=== PATIENT | female | born 1945 | race African-American/Black ===

== ENCOUNTER 2016-11-19 17:09 | Emergency (ER) | payer MEDICARE, MEDICAID ==
[~2016-11-19] VITALS: Ht 162.6 cm; Wt 120.0 kg
[2016-11-19] MEDS ORDERED: CLONIDINE 0.2MG TABLET PO ONE (19:30)
[2016-11-19 22:11] VITALS: BP 113/72
== END 2016-11-19 22:45 | disposition home or self-care (01) ==
LOC: ER 17:10
DX: B85.0 Pediculosis due to Pediculus humanus capitis (principal); I10 Essential (primary) hypertension; E11.9 Type 2 diabetes mellitus without complications; G40.909 Epilepsy, unspecified, not intractable, without status epilepticus; Z88.8 Allergy status to other drugs, medicaments and biological substances
CPT/HCPCS: 82962; 99284